=== PATIENT | female | born 1990 | race Caucasian/White ===

== ENCOUNTER → 2016-11-09 | Outpatient (CLI) | payer OTHER ==
[~2016-11-09] MED LIST: AMOXICILLIN PO; DOXYCYCLINE150 MG PO; FIORINAL CAPSUL1 CAP PO; FLEXERIL10 MG PO; NAPROSYN500 MG PO; PHENERGAN W/CO120 ML PO; PHENERGAN25 MG PO; VICODIN 5/1 TAB 5/50 PO; ZITHROMAX PO
[2016-11-12 12:33] LABS: GLIADIN IGA AB 15 Units (<20); GLIADIN IGG AB 8 Units (<20); RETICULIN IGA SCREEN W/REFLEX Negative (Negative); TISSUE TRANSGLUTAMINASE IGA AB 1 U/mL (<4)
== END | disposition home or self-care (01) ==
LOC: CLAB 14:12
PROVIDERS: Internal Medicine
DX: R19.7 Diarrhea, unspecified (principal)
CPT/HCPCS: 36415; 83516; 86255